=== PATIENT | female | born 1935 | race Caucasian/White ===

== ENCOUNTER 2020-02-20 10:08 | Emergency (ER) | payer MEDICARE, OTHER ==
[~2020-02-20] VITALS: Ht 157.5 cm; Wt 59.0 kg
[2020-02-20 10:58] LABS: BASOPHILS ABSOLUTE AUTO 0.05 K/mm3 (0.00-0.23); BASOPHILS PERCENT AUTO 1 % (0-2); EOSINOPHILS PERCENT AUTO 3 % (0-6); Hematocrit 40.7 % (33.0-51.0); Hemoglobin 13.9 g/dL (11.5-16.0); IMMATURE GRAN ABSOLUTE AUTO 0.03 K/mm3 (0.00-0.10); IMMATURE GRAN PERCENT AUTO 0 % (0-1); LYMPHOCYTES ABSOLUTE AUTO 1.62 K/mm3 (0.84-5.20); LYMPHOCYTES PERCENT AUTO 19 % (21-46); MONOCYTES ABSOLUTE AUTO 0.56 K/mm3 (0.16-1.47); MONOCYTES PERCENT AUTO 6 % (4-13); Mean Corpuscular HGB 31.2 pg (26.0-34.0); Mean Corpuscular HGB Conc 34.2 g/dL (31.5-36.5); Mean Corpuscular Volume 92 fL (80-100); Mean Platelet Volume 10.2 fL (9.1-12.4); NEUTROPHILS ABSOLUTE AUTO 6.16 K/mm3 (1.96-9.15); NEUTROPHILS PERCENT AUTO 71 % (41-73); Platelet Count 273 K/mm3 (150-400); RDW Coefficient Variation 12.3 % (11.7-14.2); RDW Standard Deviation 40.9 fL (35.1-46.3); Red Blood Cell Count 4.45 M/mm3 (3.80-5.20); White Blood Cell Count 8.72 K/mm3 (4.00-11.30)
[2020-02-20 11:27] LABS: Alanine Aminotransfer (ALT/SGP 26 U/L (12-78); Albumin, Blood 3.9 g/dL (3.4-5.0); Alk Phos 119 U/L (50-136); Anion Gap 6 mmol/L (6-16); Aspartate Aminotrans (AST/SGOT 27 U/L (12-37); Bilirubin, Total 0.3 mg/dL (0.1-1.0); Blood Urea Nitrogen 13 mg/dL (8-24); Bun/Creatinine Ratio 21.8 (12.0-20.0); CO2, Blood 25 mmol/L (21-32); Calcium, Blood 8.9 mg/dL (8.5-10.1); Chloride, Blood 97 mmol/L (98-108); Globulin, Blood 3.9 g/dL (2.2-4.0); Glomerular Filtration Rate >60 (60-); Glucose, Blood 134 mg/dL (70-99); Potassium, Blood 4.3 mmol/L (3.5-5.5); Sodium, Blood 128 mmol/L (136-145); Total Protein, Blood 7.8 g/dL (6.4-8.2); Troponin I <0.015 ng/mL (0.000-0.040)
[2020-02-20] MEDS ORDERED: Atrovent Inha12.9 GM INH (12:03)
[2020-02-20] MEDS ORDERED: PRED20 PO (12:03)
== END 2020-02-20 12:15 | disposition home or self-care (01) ==
LOC: ER 10:08
PROVIDERS: Physician Assistant
DX: J44.1 Chronic obstructive pulmonary disease with (acute) exacerbation (principal); Z88.0 Allergy status to penicillin; Z88.8 Allergy status to other drugs, medicaments and biological substances; Z88.1 Allergy status to other antibiotic agents; Z79.52 Long term (current) use of systemic steroids; Z79.899 Other long term (current) drug therapy
CPT/HCPCS: 36415; 71046; 80053; 83880; 84484; 85025; 93005; 93010; 94640; 96374-59; 99285-25; J2930

== ENCOUNTER 2022-02-14 19:16 | Inpatient (IN) | payer MEDICARE ==
[~2022-02-14] VITALS: Ht 157.5 cm; Wt 57.0 kg
[~2022-02-14 19:16] MED LIST: Atrovent Inha12.9 GM INH; PRED20 PO
[2022-02-14 20:26] LABS: Alanine Aminotransfer (ALT/SGP 16 U/L (12-78); Albumin, Blood 3.3 g/dL (3.4-5.0); Albumin/Globulin Ratio 0.8 (0.8-1.8); Alk Phos 106 U/L (50-136); Anion Gap 8 mmol/L (6-16); Aspartate Aminotrans (AST/SGOT 21 U/L (12-37); Bilirubin, Total 0.5 mg/dL (0.1-1.0); Blood Urea Nitrogen 6 mg/dL (8-24); Bun/Creatinine Ratio 12.3 (12.0-20.0); CO2, Blood 27 mmol/L (21-32); Calcium, Blood 8.5 mg/dL (8.5-10.1); Chloride, Blood 86 mmol/L (98-108); Creatinine, Blood 0.49 mg/dL (0.40-1.00); Globulin, Blood 4.1 g/dL (2.2-4.0); Glomerular Filtration Rate >60 (60-); Glucose, Blood 167 mg/dL (70-99); Potassium, Blood 3.8 mmol/L (3.5-5.5); Sodium, Blood 121 mmol/L (136-145); Total Protein, Blood 7.4 g/dL (6.4-8.2)
[2022-02-14 20:41] LABS: BASOPHILS ABSOLUTE AUTO 0.02 K/mm3 (0.00-0.23); BASOPHILS PERCENT AUTO 0 % (0-2); EOSINOPHILS PERCENT AUTO 0 % (0-6); Hematocrit 38.5 % (33.0-51.0); Hemoglobin 13.4 g/dL (11.5-16.0); IMMATURE GRAN ABSOLUTE AUTO 0.08 K/mm3 (0.00-0.10); IMMATURE GRAN PERCENT AUTO 1 % (0-1); LYMPHOCYTES ABSOLUTE AUTO 1.14 K/mm3 (0.84-5.20); LYMPHOCYTES PERCENT AUTO 10 % (21-46); MONOCYTES ABSOLUTE AUTO 0.87 K/mm3 (0.16-1.47); MONOCYTES PERCENT AUTO 8 % (4-13); Mean Corpuscular HGB 31.2 pg (26.0-34.0); Mean Corpuscular HGB Conc 34.8 g/dL (31.5-36.5); Mean Corpuscular Volume 90 fL (80-100); Mean Platelet Volume 10.6 fL (9.1-12.4); NEUTROPHILS ABSOLUTE AUTO 9.48 K/mm3 (1.96-9.15); NEUTROPHILS PERCENT AUTO 82 % (41-73); NRBC ABSOLUTE 0.02 K/mm3 (0.00-0.02); NRBC Auto 0.2 /100 WBC (0.0-0.2); Platelet Count 234 K/mm3 (150-400); RDW Coefficient Variation 12.2 % (11.7-14.2); Red Blood Cell Count 4.29 M/mm3 (3.80-5.20); White Blood Cell Count 11.59 K/mm3 (4.00-11.30)
[2022-02-14 22:05] LABS: Influenza A, PCR NEGATIVE (NEGATIVE); Influenza B, PCR NEGATIVE (NEGATIVE); Resp Syncytial Virus, PCR NEGATIVE (NEGATIVE); SARS-Cov-2 (COVID-19) PCR, MMC NEGATIVE (NEGATIVE)
[2022-02-14] MEDS ORDERED: ATROVENT HFA12.9 GM INH (23:56)
[2022-02-14] MEDS ORDERED: DORZOLAMIDE 2%10 M3 BOTHEYES (23:57)
[2022-02-14] MEDS ORDERED: TRAVOPROST2.5 ML BOTHEYES (23:57)
[2022-02-15 05:28] LABS: BASOPHILS ABSOLUTE AUTO 0.01 K/mm3 (0.00-0.23); BASOPHILS PERCENT AUTO 0 % (0-2); EOSINOPHILS PERCENT AUTO 0 % (0-6); Hematocrit 32.8 % (33.0-51.0); Hemoglobin 11.9 g/dL (11.5-16.0); IMMATURE GRAN ABSOLUTE AUTO 0.03 K/mm3 (0.00-0.10); IMMATURE GRAN PERCENT AUTO 0 % (0-1); LYMPHOCYTES ABSOLUTE AUTO 0.37 K/mm3 (0.84-5.20); LYMPHOCYTES PERCENT AUTO 4 % (21-46); MONOCYTES ABSOLUTE AUTO 0.12 K/mm3 (0.16-1.47); MONOCYTES PERCENT AUTO 1 % (4-13); Mean Corpuscular HGB Conc 36.3 g/dL (31.5-36.5); Mean Corpuscular Volume 94 fL (80-100); Mean Platelet Volume 10.7 fL (9.1-12.4); NEUTROPHILS ABSOLUTE AUTO 9.39 K/mm3 (1.96-9.15); NEUTROPHILS PERCENT AUTO 95 % (41-73); Platelet Count 232 K/mm3 (150-400); RDW Standard Deviation 40.2 fL (35.1-46.3); White Blood Cell Count 9.92 K/mm3 (4.00-11.30)
[2022-02-15 06:04] LABS: Alanine Aminotransfer (ALT/SGP 18 U/L (12-78); Albumin, Blood 2.9 g/dL (3.4-5.0); Albumin/Globulin Ratio 0.8 (0.8-1.8); Alk Phos 94 U/L (50-136); Anion Gap 8 mmol/L (6-16); Aspartate Aminotrans (AST/SGOT 20 U/L (12-37); Bilirubin, Total 0.5 mg/dL (0.1-1.0); Blood Urea Nitrogen 8 mg/dL (8-24); Bun/Creatinine Ratio 14.1 (12.0-20.0); CO2, Blood 27 mmol/L (21-32); Calcium, Blood 8.4 mg/dL (8.5-10.1); Chloride, Blood 85 mmol/L (98-108); Creatinine, Blood 0.57 mg/dL (0.40-1.00); Globulin, Blood 3.8 g/dL (2.2-4.0); Glomerular Filtration Rate >60 (60-); Glucose, Blood 177 mg/dL (70-99); Potassium, Blood 3.8 mmol/L (3.5-5.5); Sodium, Blood 120 mmol/L (136-145); Total Protein, Blood 6.7 g/dL (6.4-8.2)
--- NOTE | 2022-02-15 07:56 | NUR ---
Rn summary: Patient was admitted early this am from the ED. Patient is alert and oriented. She has been up independantly to the bathroom, needs some help with her tele box. Pt is on telemetry, STach rate 107. Breath sounds are expiratory wheeze throughout. Pt is on RA saturating 94%, pt has a dry non productive cough. Pt has been unable to rest, reports some nausia this am. Pt is hopeful to go home today. Glasses at bedside. Report to oncoming shift.
--- NOTE | 2022-02-15 10:23 | NUR ---
INCREASED NORMAL SALINE RATE TO 100 ML/HR PER ORDER.
--- NOTE | 2022-02-15 17:43 | NUR ---
PT C/O SYMPTOMS OF CONSTIPATION TODAY WITH RLQ DULL ACHE PAIN. PT REPORTED NO BM X 2 DAYS, BS ACTIVE. GAVE PRUNE JUICE AT 2:30 PM WITH NO RESULTS. NOTIFIED MD OF PT C/O CONSTIPATION. ALSO NOTIFIED OF CRITICAL NA VALUE OF 117 [address] BS OF 202[address] ARGUETA STATED SHE WOULD PLACE ORDERS.
--- NOTE | 2022-02-15 19:12 | NUR ---
SHIFT SUMMARY: PT ADMITTED EARLY THIS MORNING FOR A COPD EXACERBATION. PT IS ALERT AND ORIENTED. SHE WAS ABLE TO AMBULATE INDEPENDENTLY TO THE BATHROOM THROUGHOUT THE DAY, WITH SOME ASSISTANCE NAVIGATING THE IV POLE. NEAR THE END OF MY SHIFT, THE PATIENT BEGAN HAVING INCREASED SOB, ESPECIALLY WITH AMBULATION. SHE WAS ON ROOM AIR, BUT WHEN SHE BEGAN HAVING INCREASED SOB, WE PLACED THE PT ON O2 2L NC, WHICH BROUGHT HER O2 UP TO 98%. WE THEN PLACED THE NC NEXT TO THE PT AND EDUCATED HER TO PUT THE O2 ON WHEN SHE GETS UP TO GO TO THE BATHROOM. BSC IS SET UP NEXT TO HER BED. BUMEX WAS ALSO ADMINISTERED TO THE PT, WELL MULTIPLE NEB TREATMENTS THROUGHOUT THE DAY. THE PT IS ON TELEMETRY. WHEN STANDING TO USE THE BATHROOM, HER RATE INCREASED TO 125. SHE HAS EXPIRATORY WHEEZES THROUGHOUT. SHE HAS A DRY NONPRODUCTIVE COUGH. GUAIFENESIN WAS ADMINISTERED. SHE DID REPORT SOME NAUSEA EARLIER TODAY, WHICH WAS TREATED WITH ZOFRAN.
[2022-02-15 20:20] LABS: PCO2 Arterial > 105 mmHg (35-45); PO2 Arterial 86.5 mmHg (80-100)
--- NOTE | 2022-02-15 20:41 | NUR ---
RAPID RESPONSE AND TRANSFER WHILE RECEIVING REPORT THIS RN WAS APPROACHED BY RT CONCERNED ABOUT PT'S RESPIRATORY STATUS. UPON ENTERING ROOM PT WAS SITTING UP IN BED WORKING VERY HARD TO BREATH. COULD AUDIBLY HEAR LUNG COARSNESS AND WHEEZING. PT WAS ON 2 L VIA NC, O2 SATS WERE IN THE MID 90'S AT THIS TIME BUT RESPIRATIONS WERE IN THE 30'S AND HEART RATE WAS IN THE 140'S-150'S. 2100 DOSE SOLUMEDROL GIVEN. RT GIVING NEB TX. TELEMETRY CONFIRMED RATE AND STATED THAT PT WAS SINUS BUT WAS CONCERNED THAT THERE WAS ST CHANGES AND RECOMMENDED AN EKG. HUMBERTO FREELANCE TRANSLATOR CALLED TO ROOM FOR EKG. PT ATTEMPTING TO PULL MASK OFF, NODDING HEAD YES WHEN SPOKEN TO. BLOOD PRESSURE TAKEN READING 201/120. PT BECOMING LESS RESPONSIVE. RAPID RESPONSE CALLED. RAPID TEAM ENTERED ROOM. PT ON BIPAP WITH 14 L BLEEDIN O2 SATS 90-91%. DR. JAUREGUI AT BEDSIDE. ORDERS FOR ABG, 2.5 MG IV MORPHINE, MAG SULFATE, CHEST XRAY, 50 MEQ BICARB PUSH, AND TROPONIN LAB. ALL COMPLETED PRIOR TO TRANSFER. PT TRANSFERED VIA BED WITH FREELANCE TRANSLATOR HUMBERTO, RT, AND DISTRIBUTION SALES REPRESENTATIVE. RAFA (DAUGHTER) [phone] 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 REPORT GIVEN TO PIERCER OPERATOR.
--- NOTE | 2022-02-15 21:57 | NUR ---
PT TRANSFER TO PCU PT ARRIVED TO PCU FROM MEDICAL FLOOR AT APPROX 2019. PT WAS SLID BY 4 STAFF FROM MEDICAL FLOOR BED TO PCU BED. PT MINIMALLY RESPONSIVE. ABLE TO SQUEEZE FINGERS WHEN PROMPTED, BUT DOES NOT TRACK WITH EYES, UNABLE TO ANSWER QUESTIONS OR FOLLOW LARGER COMMANDS REGARDING MOVEMENT. SP02>92%, RR 25. TELEMETRY SHOWS SINUS TACH W/ ST ELEVATION, EKG DONE UPON ARRIVAL PER ORDERS. HR INITALLY 140'S UPON TRANSFER, NOW 90'S. MD JAUREGUI IN ROOM TO ASSESS PT. MD JAUREGUI WITH ORDERS FOR SODIUM BICARB 50 MEQ X1. MAG INFUSING PER EMAR. ARRIVED TO ROOM, NOW WITH PT. PT'S BP BEGAN DECREASING. 163/94 TO 72/41. CALL PLACED TO MD JAUREGUI. MD JAUREGUI WITH ORDERS FOR 500 ML NS BOLUS. BOLUS CURRENTLY INFUSING. LAB CALLED WITH CRITICAL TROPONIN, 131. DISCUSSED WITH CHARGE NURSE.
--- NOTE | 2022-02-15 22:25 | NUR ---
PT UPDATE PT BP RESPONDING TO NS BOLUS. CALL PLACED TO MD JAUREGUI ABOUT BP AND CRITICAL TROP. MD JAUREGUI W/ ORDERS FOR REPEAT TROP IN 1 HR AND NS AT 75 MLS/HR, SEE EMAR.
[2022-02-16 03:38] LABS: PCO2 Venous 41.5 mmHg (38-42); PO2 Venous 50.9 mmHg (38-42); pH Blood Venous 7.46 (7.34-7.37)
[2022-02-16 03:39] LABS: Base Excess Venous 5.8 mmol/L
[2022-02-16 04:43] LABS: BASOPHILS ABSOLUTE AUTO 0.02 K/mm3 (0.00-0.23); BASOPHILS PERCENT AUTO 0 % (0-2); EOSINOPHILS PERCENT AUTO 0 % (0-6); Hematocrit 32.8 % (33.0-51.0); Hemoglobin 11.7 g/dL (11.5-16.0); IMMATURE GRAN ABSOLUTE AUTO 0.07 K/mm3 (0.00-0.10); IMMATURE GRAN PERCENT AUTO 1 % (0-1); LYMPHOCYTES ABSOLUTE AUTO 0.89 K/mm3 (0.84-5.20); LYMPHOCYTES PERCENT AUTO 6 % (21-46); MONOCYTES ABSOLUTE AUTO 0.61 K/mm3 (0.16-1.47); MONOCYTES PERCENT AUTO 4 % (4-13); Mean Corpuscular HGB 31.3 pg (26.0-34.0); Mean Corpuscular HGB Conc 35.7 g/dL (31.5-36.5); Mean Platelet Volume 10.6 fL (9.1-12.4); NEUTROPHILS ABSOLUTE AUTO 12.97 K/mm3 (1.96-9.15); NEUTROPHILS PERCENT AUTO 89 % (41-73); Platelet Count 251 K/mm3 (150-400); RDW Coefficient Variation 11.8 % (11.7-14.2); RDW Standard Deviation 37.8 fL (35.1-46.3); Red Blood Cell Count 3.74 M/mm3 (3.80-5.20); White Blood Cell Count 14.56 K/mm3 (4.00-11.30)
[2022-02-16 04:46] LABS: Anion Gap 9 mmol/L (6-16); Blood Urea Nitrogen 13 mg/dL (8-24); Bun/Creatinine Ratio 16.2 (12.0-20.0); CO2, Blood 29 mmol/L (21-32); Calcium, Blood 8.3 mg/dL (8.5-10.1); Chloride, Blood 83 mmol/L (98-108); Glomerular Filtration Rate >60 (60-); Glucose, Blood 176 mg/dL (70-99); Potassium, Blood 3.6 mmol/L (3.5-5.5); Sodium, Blood 121 mmol/L (136-145)
[2022-02-16 04:47] LABS: Mean Corpuscular Volume 88 fL (80-100)
--- NOTE | 2022-02-16 05:54 | NUR ---
SHIFT SUMMARY TOWARDS END OF SHIFT, PT BEGAN TO BECOME MORE ALERT, ORIENTED. PT ABLE TO STATE WHERE SHE IS, , YEAR, ETC. SP02>92% ON BIPAP , IMPROVED VBG RESULTS NOTED IN DEC. TELEMETRY CONTINUES TO SHOW SINUS TACH, HR AVG 100'S CURRENTLY. SOFT BP. PT USED BEDPAN THIS SHIFT TO VOID AFTER MULTIPLE PROMPTS AND A BLADDER SCAN SHOWING URINE IN BLADDER. NO BM THIS SHIFT. NS INFUSED PER EMAR. NEW IV PLACED IN L AC FOR DUAL ACCESS. PT STAYED NIGHT IN ROOM. CALL LIGHT IN REACH.
[2022-02-16 12:00] LABS: International Normalized Ratio 1.09; Prothrombin Time Results 11.4 Sec (9.7-11.5)
--- NOTE | 2022-02-16 15:07 | NUR ---
SHIFT SUMMARY Pt is a/o x 4 with no c/o pain. This afternoon she did report some nausea for which she was medicated. This morning she had an elevtaed troponin which was called in to Dr Moore who gave orders for a cardio consult, Aspirin and a heparin drip dosed by pharmacy. Dr Nelson was notified for the cardio consult and the heparin drip was started. Her has been at the bedside for part of the day and has been updated. She remains on 3 LPM via NC to maintain sats above 90%. She is resting in bed now. She has her call light and report was given to the receiving nurse.
--- NOTE | 2022-02-16 15:57 | NUR ---
PT WITH INCREASE IN SOB, PT ANXIOUS TACHYCARDIC, TACHPENIC, SKIN DRY. FLUIDS STOPPED AT THIS TIME WHEEZES NOTED T/O, COARSE CRACKLES NOTED. PT RECIEVED MORPHINE FOR AIR HUNGER WITHOUT IMRPOVEMENT. DR ARGUETA TO ROOM, RT TO ROOM, V/O TO TRANSFER TO ICU AT THIS TIME. HR 135, SPO2 92% WITH CPAP IN PLACE, RR 40.
--- NOTE | 2022-02-16 16:14 | NUR ---
PT CONFUSED AGITATED PULLING AT MASK CONSTANTLY, SHOUTING OUT. ATIVAN 0.5MG IVP ADMINISTERED AT THIS TIME. BREATHING TX IN PROGRESS, NO CHANGE IN LUNG SOUNDS. SOLUMEDROL 125MG ADMINISTERED IVP. FAMILY HAS BEEN UPDATED BY DR ARGUETA, THEY CONTINUE WITH WISHES FOR DNR STATUS WITHOUT INTUBATION. HEPARIN D/C PER DR ARGUETA, NS IS STOPPED.
--- NOTE | 2022-02-16 18:33 | NUR ---
PT RESTING WELL, MEDCIATIONS PER EMAR. FMAILY AT [facility], ADDITIONAL FAMILY WILL ARRIVE TONIGHT. PT REMAINS ON CPAP. VSS. WILL ASSESS FOR COTNINUED MEDICATION NEEDS
--- NOTE | 2022-02-16 20:09 | NUR ---
called to bedside pt having extreme aggiation and dyspnea. Pt DNR unable to have cardiac intervention due to comorbid conditions. Decision made for cofort care. Pt kept on bipap for now until we can mdecicate her well. prn lasix ordered for comfort if pulmonary edema present. Family on their way from out of town. comfort pillow and quilt placed. Will continue to monitor.
--- NOTE | 2022-02-17 01:15 | NUR ---
PATIENT STATUS PATIENT RESTING COMFORTABLY WITH AT BEDSIDE. PATIENT BECOMES EASILY AGGITATED AND SUSPICIOUS OF STAFF WHEN WOKEN UP. BEING MEDICATED PER EMAR. CLINICAL JUDGMENT USED TO ALLOW PATIENT TO REST WITHOUT FREQUENT DISTURBANCES. CPAP IN PLACE PER FAMILY PREFERENCE WITH NO S/S OF INCREASED WOB.
--- NOTE | 2022-02-17 01:19 | NUR ---
PATIENT UPDATE PATIENT GIVEN WATER AND WAS TAKEN OFF OF CPAP AND PUT ONTO A NASAL CANULA AT 4L; PATIENT EXPRESSED COMFORT WITH BREATHING AND CONTINUED TO SAT >95. PATIENT REQUESTED BEDPAN AND VOIDED EASILY. PATIENT IS ALERT AND ORIENTED TO SELF, PLACE, AND FAMILY. PATIENT CONFUSED WITH CARE AND REASONING OF HOSPITALIZATION. PATIENT WAS PREVIOUS SUPICIOUS OF STAFF DURING EARLIER CARE DURING THE SHIFT, BUT WAS CALM AND COOPERATIVE WITH REPOSITIONING AND TOILETING. CALL LIGHT IN REACH AND BED IN LOWEST POSITION. FAMILY AT BEDSIDE.
--- NOTE | 2022-02-17 03:05 | NUR ---
PATIENT UPDATE PATIENT SLEEPING COMFORTABLY WITH DAUGHTER AND GRANDSON AT BEDSIDE. NO VERBAL OR PHYSICAL CUES OF PAIN, ANXIETY, SOB, OR DISCOMFORT. CALL LIGHT IN REACH, BED IN LOWEST POSITION. WILL CONTINUE TO MONITOR
--- NOTE | 2022-02-17 04:48 | NUR ---
PATIENT UPDATE PATIENT CALLED FOR ASSISTANCE WITH BEDPAN; PERICARE DONE. PATIENT IS VISITING WITH DAUGHTER AND GRANDSON. PATIENT REPOSITIONED IN BED AND VERBALIZED COMFORT. CALM AND COOPERATIVE WITH CARE. NO S/S OF PAIN, ANXIETY, SOB, OR DISCOMFORT. PATIENT GIVEN FRESH CUP OF WATER. CALL BUTTON IN REACH WITH BED IN LOWEST POSITION. WILL CONTINUE TO MONITOR
--- NOTE | 2022-02-17 06:03 | NUR ---
SHIFT SUMMARY PATIENT IS A$O X4 WITH SOME CONFUSION OF THE EVENTS OF THE PREVIOUS DAY WHEN SHE WAS NONVERBAL. PATIENT IS SATTING AT 98% WITH 4L ON NASAL CANULA. ABLE TO CALL FOR HELP WITH BEDPAN FOR TOILETING. PATIENTS NEEDS HELP BEING PULLED UP IN THE BED BUT IS ABLE TO REPOSTION SELF WELL. NO S/S OF PAIN, SOB, ANXIETY, OR DISCOMFORT. DAUGHTER AND GRANDSON IN ROOM HAVING PLEASANT CONVERSATIONS WITH EACHOTHER. PATIENT GIVEN SNACK AND WATER PER REQUEST. CALL BUTTON IN REACH WITH BED IN LOWEST POSITION. WILL CONTINUE TO MONITOR.
[2022-02-17 10:58] LABS: Anion Gap 7 mmol/L (6-16); Blood Urea Nitrogen 17 mg/dL (8-24); Bun/Creatinine Ratio 22.5 (12.0-20.0); CO2, Blood 30 mmol/L (21-32); Calcium, Blood 8.3 mg/dL (8.5-10.1); Chloride, Blood 85 mmol/L (98-108); Creatinine, Blood 0.76 mg/dL (0.40-1.00); Glomerular Filtration Rate >60 (60-); Glucose, Blood 122 mg/dL (70-99); Potassium, Blood 4.4 mmol/L (3.5-5.5); Sodium, Blood 122 mmol/L (136-145)
--- NOTE | 2022-02-17 14:56 | NUR ---
UPDATE PT A&Ox4 AND ON COMFORT CARE UPON CARE ASSUMPTION. DR ARGUETA CAME TO BEDSIDE FOR FAMILY DISCUSSION ABOUT PT CARE PLAN. FAMILY AND PT MADE DECISION TO RESUME FULL TREATMENT AND CANCEL COMFORT CARE AT THIS TIME. THIS AFTERNOON PT BECAME ANXIOUS AND FIXATED ON THINGS. MONITOR SHOWED SINUS TACH HR 140'S. PT REQUIRED COACHING ON TAKING DEEP BREATHS. SPO2>92% WITH OXYGEN TITRATED UP TO 3L. PT FIXATED ON NEED TO VOID DESPITE MONTANO CATH PATENT AND DRAINING, CLEAR YELLOW URINE. PT REQUIRING FREQUENT REMINDING THAT MONTANO CATH IS IN PLACE. PT HR TRENDING BACK DOWN TO SINUS TACH 100-110'S. PT WITH COMMENTS OF PATIENT "LOOSING IT" AND "GOING IN AND OUT".
[2022-02-17 15:03] LABS: Source, Urine Foley catheter
[2022-02-17 16:07] LABS: Appearance, Urine Clear (Clear); Bilirubin, Urine Neg (Neg); Blood, Urine Neg (Neg); Glucose Qualitative, Urine Neg (Neg); Ketones, Urine Neg (Neg); Leukocyte Esterase, Urine Neg (Neg); Nitrite, Urine Neg (Neg); Protein, Urine Neg (Neg); Specific Gravity, Urine 1.005 (1.003-1.022); Urobilinogen, Urine NORM (Normal); pH, Urine 6.5 (5.0-8.0)
[2022-02-17 16:24] LABS: Color, Urine No Color (P-Yellow)
--- NOTE | 2022-02-17 17:28 | NUR ---
SHIFT SUMMARY PT A&Ox4 WITH A FEW MOMENTS OF CONFUSION AND FIXATION REQUIRING FREQUENT REDIRECTING OTHERWISE PT APPROPRIATE. SPO2>90% ON 3L HUMIDIFIED NC. SINUS TACH 110'S. MONTANO CATH IN PLACE AND DRAINING APPROPIATELY. FAMILY AT BEDSIDE REMINISCING WITH PT THROUGHOUT THE DAY. WILL CONTINUE TO MONITOR AND PROVIDE CARE UNTIL REPORT TO NOC.
--- NOTE | 2022-02-17 19:01 | NUR ---
review of pt with hospitalist. Showing some improvement will try to return to limited treatment and see how she responds.
--- NOTE | 2022-02-17 19:16 | NUR ---
THIS RN AGREES W/ STUDENT NURSE DOCUMENTATION THIS SHIFT.
--- NOTE | 2022-02-17 19:40 | NUR ---
ASSUMPTION OF CARE RYAN MUELLER AND RAOUL PORTER ASSUMED CARE FOR PATIENT AT 1900. REPORT TAKEN FROM SANIYA PORTER AND MIKKI MUELLER
[2022-02-18 04:17] LABS: Alanine Aminotransfer (ALT/SGP 34 U/L (12-78); Albumin, Blood 2.8 g/dL (3.4-5.0); Albumin/Globulin Ratio 0.8 (0.8-1.8); Alk Phos 91 U/L (50-136); Anion Gap 6 mmol/L (6-16); Aspartate Aminotrans (AST/SGOT 47 U/L (12-37); Bilirubin, Total 0.3 mg/dL (0.1-1.0); Blood Urea Nitrogen 21 mg/dL (8-24); CO2, Blood 33 mmol/L (21-32); Calcium, Blood 8.8 mg/dL (8.5-10.1); Chloride, Blood 93 mmol/L (98-108); Creatinine, Blood 0.88 mg/dL (0.40-1.00); Globulin, Blood 3.3 g/dL (2.2-4.0); Glomerular Filtration Rate >60 (60-); Glucose, Blood 160 mg/dL (70-99); Potassium, Blood 4.4 mmol/L (3.5-5.5); Sodium, Blood 132 mmol/L (136-145); Total Protein, Blood 6.1 g/dL (6.4-8.2)
--- NOTE | 2022-02-18 04:19 | NUR ---
SHIFT SUMMARY PATIENT IS A&O X4 WITH PERIODS OF CONFUSION. CALM AND COOPERATIVE WITH CARE. NO COMPLAINTS OF PAIN. ON 3L OF O2 VIA NC, SATTING AT 95%. DYSPNEIC WITH EXERTION. SR/ST ON TELE WITH HR 90-110S, SBP 100-120. AFEBRILE. MONTANO CATHETER IS DRAINING LIGHT YELLOW URINE. PATIENT IS USING FLUTTER VALVE FREQUENTLY DURING SHIFT WHEN AWAKE AND HAS STARTED TO COUGH UP THIN CLEAR-ARREAGA SPUTUM. PATIENT UNDERSTANDS HOW TO USE CALL BUTTON FOR ASSISTANCE. DAUGHTER AND GRANDSON SLEEPING AT BEDSIDE. BED IN LOWEST POSITION AND CALL BUTTON WITHIN REACH. WILL CONTINUE TO MONITOR.
--- NOTE | 2022-02-18 17:56 | NUR ---
SHIFT SUMMARY A&Ox4, VSS, SPO2>92% 4L NC, SINUS TACH 100-120'S. PT DID NOT HAVE ANY MOMENTS OF SOB. PT ABLE TO GET UP TO CHAIR WITH ONE ASSIST, GB, AND FWW. DID NOT DESAT WITH ACTIVITY. HAS BEEN UP IN CHAIR FOR MAJORITY OF THE DAY. NO MOMENTS OF CONFUSION TODAY. PT REMAINED VERY CLEAR AND SPENT MUCH OF THE DAY REMINISCINGWITH FAMILY MEMBERS. FAMILY AT BEDSIDE THROUGHOUT THE DAY. MONTANO PATENT AND DRAINING APPROPRIATELY. WILL CONTINUE TO MONITOR UNTIL REPORT TO NOC RN.
--- NOTE | 2022-02-18 18:38 | NUR ---
THIS RN AGREES W/ STUDENT NURSE DOCUMENTATION THIS SHIFT.
--- NOTE | 2022-02-19 05:53 | NUR ---
SHIFT SUMMARY ASSUMED CARE OF PT AT 1900. PT IS A/OX3, FORGETFUL OF DATE. HEART SOUNDS REGULAR. TELE SHOWS SINUS WHILE SLEEPING BUT SINUS TACH WHILE AWAKE AND MOVING. LUNG SOUNDS COURSE WITH WHEEZES, PT REMAINED ON 4L NC. PT HAD NO NEW COMPLAINTS, PT SLKEPT T/O THE NIGHT. PT AWAOKE THIS AM FRIGHTENED BECAUSE SHE SLEPT SO LONG AND THE ROOM WAS QUIET. PT WAS BLADDER TRAINED T/O THE NIGHT. CHARMAINE REMOVED THIS AM AT 0600.
--- NOTE | 2022-02-19 17:21 | NUR ---
TRANSFER: PT ARRIVED TO ROOM 209 FROM PCU. PT ALERT AND ORIENTED, FAMILY AT BEDSIDE. PT REMAINS ON 2L O2. PT MIN ASSIST TO CHAIR AND TO BATHROOM. CALL LIGHT PLACED IN REACH. WILL CONT TO MONITOR AND TREAT PER RX.
--- NOTE | 2022-02-19 17:23 | NUR ---
SHIFT SUMMARY/TRANSER TO SURGICAL PT A&Ox4, VSS, SR-ST 90-120'S. TITRATED OXYGEN FROM 4L TO 2L VIA NC SPO2>93%. FAMILY AT BEDISDE THROUGHOUT THE DAY. PT CONTINENT OF URINE. AMBULATING TO THE BATHROOM WITH ONE PERSON ASIJERICAT AND FWW. REPORT GIVEN TO SURGICAL FLOOR RN AT APPROXIMATELY 1710. PT TRANSFERED TO ROOM 209 VIA WHEELCHAIR WITH BELONGINGS AND PRESENT AT APPROXIMATELY 1720.
--- NOTE | 2022-02-19 18:12 | NUR ---
THIS RN AGREES W/ STUDENT NURSE DOCUMENTATION THIS SHIFT.
--- NOTE | 2022-02-20 04:50 | NUR ---
SHIFT SUMMARY PT AOX3-4. PT WAS A LITTLE CONFUSED WHEN SHE WOKE UP THIS MORNING BUT EASILY REORIENTED. NO ACUTE CHANGES. PT DENIES PAIN. VSS BUT HYPERTENSIVE THIS MORNING 164/75 MMHG. PT DENIES CHEST PAIN AND DIZZINESS. CBG AT HS WAS 151. PT ON 2L N/C, SATS ABOVE 90%. PT USE BATHROOM, AMBULATES WITH FWW AND SBA. USEA CALL LIGHT APPROPRIATELY. TOLERATING PO INTAKE/REG DIET. PT ALSO HAS PRODCUCTIVE COUGH INTERMITTENTLY AND DIM LUNG SOUNDS, ENC USE FLUTTER VALVE. CALL LIGHT WITHIN REACH. WILL NOTIFY THE ONCOMING NURSE FOR REPORT.
[2022-02-20] MEDS ORDERED: ATOR20 PO (13:53)
[2022-02-20] MEDS ORDERED: ASPI81CH PO (13:53)
[2022-02-20] MEDS ORDERED: Nicoderm Cq1 EAC1 TOP (13:54)
[2022-02-20] MEDS ORDERED: FURO20 PO (13:54)
[2022-02-20] MEDS ORDERED: DOCU100 PO (13:54)
[2022-02-20] MEDS ORDERED: BUSP5 PO (13:54)
[2022-02-20] MEDS ORDERED: MIRALAX17 GM PO (13:58)
[2022-02-20] MEDS ORDERED: PRED20 PO (13:59)
[2022-02-20] MEDS ORDERED: AIRDUO DIGIHAL1 EAC2 INH (14:01)
[2022-02-20] MEDS ORDERED: POTA8 PO (14:04)
--- NOTE | 2022-02-20 18:00 | NUR ---
DISCHARGE PT DISCHARGED HOME FROM UNIT AT APROX 1424. PT GIVEN WRITTEN AND VERBAL DC INSTUCTIONS AND VERBALIZED UNDERSTANDING. IV REMOVED. WC TO CAR. NEW RX'S FAXED TO [facility].
== END 2022-02-20 14:22 | disposition home or self-care (01) | DRG 189 ==
LOC: ER 19:16 → MEDS 23:35 → ER 02-15 01:46 → MEDS 02-15 02:07 → PCU 02-15 20:37 → SURS 02-19 17:19
PROVIDERS: Internal Medicine; Student in an Organized Health Care Education/Training Program; ADMIT Internal Medicine
PROC: 5A09457 Assistance with Respiratory Ventilation, 24-96 Consecutive Hours, Continuous Positive Airway Pressure (ICD-10-PCS; principal; 2022-02-15)
DX: J96.01 Acute respiratory failure with hypoxia (principal); I50.31 Acute diastolic (congestive) heart failure; I21.4 Non-ST elevation (NSTEMI) myocardial infarction; E87.1 Hypo-osmolality and hyponatremia; J44.1 Chronic obstructive pulmonary disease with (acute) exacerbation; E87.0 Hyperosmolality and hypernatremia; J44.0 Chronic obstructive pulmonary disease with (acute) lower respiratory infection; Z66 Do not resuscitate; J20.9 Acute bronchitis, unspecified; F41.1 Generalized anxiety disorder; R53.81 Other malaise; R77.8 Other specified abnormalities of plasma proteins; Z20.822 Contact with and (suspected) exposure to COVID-19; F17.210 Nicotine dependence, cigarettes, uncomplicated; R00.0 Tachycardia, unspecified; F10.10 Alcohol abuse, uncomplicated; H40.9 Unspecified glaucoma; H35.30 Unspecified macular degeneration; Z88.0 Allergy status to penicillin; Z88.1 Allergy status to other antibiotic agents; Z88.8 Allergy status to other drugs, medicaments and biological substances; Z79.51 Long term (current) use of inhaled steroids; Z79.899 Other long term (current) drug therapy; F41.9 Anxiety disorder, unspecified
CPT/HCPCS: 0241U; 36415; 36600; 71045; 71046; 80048; 80053; 81003; 82803; 82947; 83880; 84295; 84484; 85025; 85610; 85730; 87070; 87205; 93005; 93010; 93306; 94640; 94644; 94660; 94664; 94760; 94762; 96365; 96366; 96372; 96375; 97110; 97116; 97162; 99285-25; A9270; J1644; J1650; J1885; J1956; J2060; J2270; J2405; J2550; J2930; J3475; J7030; J7040; J7512

== ENCOUNTER 2022-08-16 05:45 | Inpatient (IN) | payer MEDICARE ==
[~2022-08-16] VITALS: Ht 157.5 cm; Wt 64.2 kg
[~2022-08-16 05:45] MED LIST changes: +AIRDUO DIGIHAL1 EAC2 INH; +ASPI81CH PO; +ATOR20 PO; +ATROVENT HFA12.9 GM INH; +BUSP5 PO; +DOCU100 PO; +DORZOLAMIDE 2%10 M3 BOTHEYES; +FURO20 PO; +MIRALAX17 GM PO; +Nicoderm Cq1 EAC1 TOP; +POTA8 PO; +TRAVOPROST2.5 ML BOTHEYES
[2022-08-16 06:15] LABS: BASOPHILS ABSOLUTE AUTO 0.04 K/mm3 (0.00-0.23); BASOPHILS PERCENT AUTO 0 % (0-2); EOSINOPHILS ABSOLUTE AUTO 0.04 K/mm3 (0.00-0.68); EOSINOPHILS PERCENT AUTO 0 % (0-6); Hematocrit 38.2 % (33.0-51.0); Hemoglobin 14.2 g/dL (11.5-16.0); IMMATURE GRAN ABSOLUTE AUTO 0.06 K/mm3 (0.00-0.10); IMMATURE GRAN PERCENT AUTO 1 % (0-1); LYMPHOCYTES ABSOLUTE AUTO 2.88 K/mm3 (0.84-5.20); LYMPHOCYTES PERCENT AUTO 27 % (21-46); MONOCYTES ABSOLUTE AUTO 0.72 K/mm3 (0.16-1.47); MONOCYTES PERCENT AUTO 7 % (4-13); Mean Corpuscular HGB 36.2 pg (26.0-34.0); Mean Corpuscular HGB Conc 37.2 g/dL (31.5-36.5); Mean Corpuscular Volume 97 fL (80-100); Mean Platelet Volume 10.1 fL (9.1-12.4); NEUTROPHILS ABSOLUTE AUTO 6.86 K/mm3 (1.96-9.15); NEUTROPHILS PERCENT AUTO 65 % (41-73); Platelet Count 237 K/mm3 (150-400); RDW Coefficient Variation 14.8 % (11.7-14.2); RDW Standard Deviation 46.2 fL (35.1-46.3); Red Blood Cell Count 3.92 M/mm3 (3.80-5.20)
[2022-08-16 06:29] LABS: Calcium, Blood 9.1 mg/dL (8.5-10.1); Creatinine, Blood 0.77 mg/dL (0.40-1.00); Potassium, Blood 4.1 mmol/L (3.5-5.5)
[2022-08-16 06:51] LABS: Base Excess Venous -4.9 mmol/L; PCO2 Venous 50.4 mmHg (38-42)
[2022-08-16 06:53] LABS: pH Blood Venous 7.25 (7.34-7.37)
[2022-08-16 07:10] LABS: Influenza A, PCR NEGATIVE (NEGATIVE); Influenza B, PCR NEGATIVE (NEGATIVE); Resp Syncytial Virus, PCR NEGATIVE (NEGATIVE)
[2022-08-16 07:11] LABS: SARS-Cov-2 (COVID-19) PCR, MMC POSITIVE (NEGATIVE)
--- NOTE | 2022-08-16 11:45 | NUR ---
PT ARRIVED TO ICU ALERT AND ORIENTED X3, ON 2L NC, O2 SATS 98%, LUNG SOUNDS CLEAR, DIMINSHED BASES BILATERALLY. REGULAR DIET, VOIDS CLEAR YELLOW URINE, SKIN INTACT, HAS MASS ON LOWER BACK, HAS BEEN PRESENT SINCE AGE 13 PER PT, PIV X2 SL, BOTH FLUSH WELL. NO FAMILY AT BEDSIDE, PT STATES WILL BE BACK LATER TODAY. RN TO CONTINUE TO MONITOR.
--- NOTE | 2022-08-16 15:46 | NUR ---
ADMISSION ASSESSMENT COMPLETED. PT HAS BEEN OFF BIPAP SINCE ADMIT TO ICU. CONFIRMED PCU ORDERS APPROPRIATE WITH MD. CODE STATUS UPDATED TO DNR PER PT. REPORT CALLED TO CHARLOTTE ALICEA. PT TO BE TRANSFERRED TO PCU 13. CALL PLACED TO PT'S DAUGHTER RAFA PER PT REQEST TO UPDATE HER ABOUT HOSPITALIZATION AND PTS IMPROVING CONDITION, NO ANSWER, LEFT MESSAGE REQUESTING A RETURN CALL. RAFA .
--- NOTE | 2022-08-16 16:42 | NUR ---
ASSUMED CARE UPON TRANSFER TO PCU 1600 TO PCU 13 VIA BED AND PT AMBULATED TO BEDSIDE COMMODE WITHOUT DIFFICULTY. PT URINATED 500ML CLEAR YELLOW. PT HAS 2 IV SALINE LOCKED. PT HAS SLIGHT COMPLANTS OF PAIN TO BACK OF HEAD UPON TRANFER.." PROBABLY DUE TO ALL THE EXCITEMENT". PT WAS 97% ON 2L NASAL CANULA, PUT PATIENT TO ROOM AIR. SHE HAS STRONG COUGH STARTING TO BRING UP CLEAR PHLEM. NO NEW ACUTE NEEDS AT THIS TIME. IS AT BEDSIDE WITH HER.
--- NOTE | 2022-08-16 18:15 | NUR ---
END OF SHIFT NOTE. PATIENT HAS BEEN INDEPENDENT IN ROOM WITHOUT DIFFICUTLY AMBULATING AROUND. SHE IS EATTING DINNER AT THIS TIME. HER OXYGENATION DIPS TO 88 AND UP TO 93% WHEN NOT TALKING OR EATTING AND IS RELAXED IN SITTING POSITION. AT BEDSIDE. NO ACUTE NEEDS AT THIS TIME.
--- NOTE | 2022-08-17 03:45 | NUR ---
PATIENT UPDATE AT APPROXIMATELY 0220 PATIENT'S HR INCREASED TO 140, THIS RN CHECKED ON PATIENT WITH HER STATING "I HAD A DREAM THAT I WAS LOSING ALL MY MONEY PLAYING CARDS AT THE [employer]". THIS RN NOTED THAT SHE WAS MOVING AROUND IN BED, PATIENT DENIED ANY FEELINGS OF DISCOMFORT. THIS RN STEPPED OFF THE FLOOR AND WAS CALLED BACK TO PATIENT'S ROOM BY NARINDER PORTER STATING THAT "RM 13 IS IN SVT". THIS RN ARRIVED TO 13 AROUND 0230. SARAI RN, GILBERT PORTER, AND JAGUAR AT BEDSIDE WITH ISOLATION PPE ON. CRASH CART OUTSIDE OF THE ROOM. THIS RN ENTERED THE ROOM AT 0231 WHEN GILBERT PORTER GAVE 6MG PUSH ADENSOINE. MD VARGAS TO BEDSIDE AFTER ADENOSINE PUSH GIVEN AND GAVE CAROTID MASSAGE AT WHICH TIME THE PATIENT'S HR RANGING FROM 80-90S. ZOLL LEFT AT BEDSIDE WITH PADS LEFT ON PATIENT. BP STABLE; PATIENT ALERT AND ORIENTED FULLY. EKG DONE SHOWING SINUS RHTYHM WITH FREQUENT PVC'S. HR REMAINS IN THE 90S AT TIME OF WRITING THIS NOTE. CONTINUOUS CARDIAC MONITORING. PATIENT DENIES CHEST PAIN/PRESSURE. DENIES SOB; CONTINUES TO BE ON 2L NC WITH O2 SATS >94%. CRASH CART REMAINS OUTSIDE OF ROOM.
--- NOTE | 2022-08-17 04:04 | NUR ---
UPDATE AT 0215 PT CONVERTED INTO SVT, RATE UP TO 202 BPM. THIS RN AT BEDSIDE, CHARLOTTE ANDERSON UPDATING PHYSICIAN AT THIS TIME. PT TOLD TO BEAR DOWN TO ATTEMPT VALSALVA MANEUVER, PT SUSTAINED HR IN 180'S. PT THEN ENCOURAGE TO BLOW INTO SYRINGE IN ANOTHER ATTEMPT AT THE VALSALVA MANEUVER. PHYSICIAN ORDERED 5 MG PUSH OF METOPROLOL IV. GIVEN ON OVERRIDE. PHYSICIAN AT BEDSIDE. 6 MG OF ADENOSINE ORDERED AND PULLED, PACER PADS ON PT, ZOLL AT BEDSIDE AND ON MONITOR. ADENOSINE GIVEN PER MD ORDER AT 0231. DR. JAUREGUI DID CAROTID MASSAGE AT 0233. PT CONVERTED INTO NSR AT 0233. ZOLL REMAINS AT BEDSIDE AND PADS IN PLACE. WILL CONT TO MONITOR
[2022-08-17 04:59] LABS: BASOPHILS PERCENT AUTO 0 % (0-2); EOSINOPHILS PERCENT AUTO 0 % (0-6); Hematocrit 33.4 % (33.0-51.0); Hemoglobin 12.1 g/dL (11.5-16.0); IMMATURE GRAN ABSOLUTE AUTO 0.03 K/mm3 (0.00-0.10); IMMATURE GRAN PERCENT AUTO 1 % (0-1); LYMPHOCYTES ABSOLUTE AUTO 1.06 K/mm3 (0.84-5.20); LYMPHOCYTES PERCENT AUTO 17 % (21-46); MONOCYTES ABSOLUTE AUTO 0.22 K/mm3 (0.16-1.47); MONOCYTES PERCENT AUTO 4 % (4-13); Mean Corpuscular HGB 34.5 pg (26.0-34.0); Mean Corpuscular HGB Conc 36.2 g/dL (31.5-36.5); Mean Corpuscular Volume 95 fL (80-100); Mean Platelet Volume 10.2 fL (9.1-12.4); NEUTROPHILS ABSOLUTE AUTO 4.84 K/mm3 (1.96-9.15); NEUTROPHILS PERCENT AUTO 79 % (41-73); Platelet Count 212 K/mm3 (150-400); RDW Coefficient Variation 13.8 % (11.7-14.2); RDW Standard Deviation 45.1 fL (35.1-46.3); Red Blood Cell Count 3.51 M/mm3 (3.80-5.20); White Blood Cell Count 6.15 K/mm3 (4.00-11.30)
--- NOTE | 2022-08-17 05:00 | NUR ---
SHIFT SUMMARY PATIENT A&O X4 DURING THIS SHIFT. DENIES CHEST PAIN/PRESSURE. HEADACHE RESOLVED; MEDICATED PER EMAR. PATIENT ABLE TO MAKE NEEDS KNOWN AND IS INDEPENDENT TO THE BEDSIDE COMMODE. PATIENT WITH SVT AROUND 0225 THIS AM, HR 180-200'S. 5MG LOPRESSOR PUSH AND 6MG ADENOSINE GIVEN WITH CAROTID MASSAGE BY MD VARGAS; PATIENT HR RETURNED TO 80-90'S AFTER INTERVENTIONS; SEE PREVIOUS NOTES FOR MORE DETAILS. CRASH CART REMAINS OUTSIDE OF PATIENT ROOM. 12 MG OF ADENOSINE DRAWN UP INTO SYRINGE AND AT BEDSIDE NEAR ZOLL. PADS LEFT ON PATIENT. PATIENT CHANGED TO FULL CODE PER REQUEST DURING EVENT. MD AT BEDSIDE WHEN PATIENT EXPRESSED WISHES; PURPLE BRACELETS REMOVED FROM DOORWAY AND BRACELET. PATIENT VERBALIZED UNDERSTANDING WHAT A "FULL CODE" MEANT WITH THE INTERVENTIONS THAT WOULD BE PROVIDED. HR REMAINS IN THE 90'S WITH BP STABLE. PATIENT CONTINUES TO DENY CHEST PAIN/PRESSURE AND SOB. O2 SATS >92% ON 2L NC. AFEBRILE. COVID ISOLATION PRECAUTIONS IN PLACE; PPE OUTSIDE OF DOOR. BED IN LOWEST POSITION AND CALL LIGHT IN PLACE. WILL CONTINUE TO MONITOR UNTIL SHIFT CHANGE AT 0700.
[2022-08-17 05:15] LABS: Albumin, Blood 3.3 g/dL (3.4-5.0); Anion Gap 8 mmol/L (6-16); Blood Urea Nitrogen 28 mg/dL (8-24); Bun/Creatinine Ratio 36.6 (12.0-20.0); CO2, Blood 27 mmol/L (21-32); Calcium, Blood 8.5 mg/dL (8.5-10.1); Chloride, Blood 103 mmol/L (98-108); Creatinine, Blood 0.76 mg/dL (0.40-1.00); Glomerular Filtration Rate 77 (60-); Glucose, Blood 166 mg/dL (70-99); Phosphorus, Blood 3.6 mg/dL (2.5-4.9); Potassium, Blood 4.1 mmol/L (3.5-5.5); Sodium, Blood 138 mmol/L (136-145)
[2022-08-17] MEDS ORDERED: METO25 PO (09:02)
--- NOTE | 2022-08-17 17:03 | NUR ---
Shift Summary Pt has been independent in room and has called appropriately for assistance. Pt was titrated off of supplemental oxygen therapy to room air and tolerated well. Pt has reported no incidences of SOB. Pt has c/o difficulty clearing phlegm, medications are already ordered to treat this. Pt had an episode of increased heart rate (140's) accompanied with elevated blood pressure (SBP 160's) that they stated was related to a phone call that frustrated and upset them. This RN provided deep breathing instruction and dristraction through therapeutic communication to assist them in calming, heart rate and blood pressure fell to normal ranges. Pt has denied c/o pain/discomfort.
--- NOTE | 2022-08-18 05:05 | NUR ---
SHIFT SUMMARY: PT REMAINS ALERT AND ORIENTED X4, BP AND HR STABLE, AFEBRILE, PT REMAINED OFF OF OXYGEN THIS SHIFT CURRENTLY SATING >95%. RESPIRATIONS EVEN AND UNLABORED. PT ABLE TO AMBULATE IND TO BSC, UP MUTIPLE TIMES THROUGHOUT THE NIGHT TO VOID, NO BM THIS SHIFT. PT CURRENTLY SITTING UP IN BED, SLEEPING. CALL LIGHT IN REACH, WILL REPORT TO ONCOMING RN.
--- NOTE | 2022-08-18 16:58 | NUR ---
Shift Summary Pt has been independent in room. Pt has c/o difficulty clearing phlegm. Pt has stated no dyspnea or shortness of breath. Vital signs stable, there was one episode of increased heart rate (130's) during a phone call, this RN reminded the Pt to deep breathe and use distraction to calm down and heart rate fell to 90's. Pt was on 2L via nasal cannula at the start of shift and was titrated to room air, SpO2 has read 92%-98%.
--- NOTE | 2022-08-18 23:54 | NUR ---
RECEIVED REPORT FROM CALLUM CRONIN RN.
--- NOTE | 2022-08-19 00:01 | NUR ---
TRANSFER: PT TRANSFERRED VIA WHEELCHAIR FROM [facility] 13 TO 354 @0002 REPORT GIVEN TO IVETTE PORTER. ALL BELONGINGS WITH PT.
--- NOTE | 2022-08-19 00:04 | NUR ---
PT ARRIVED TO UNIT BY WHEELCHAIR ESCORT AT 0000 WITH BELONGINGS. SELF-TRANSFERRED TO BED.
--- NOTE | 2022-08-19 04:18 | NUR ---
TIEING MACHINE OPERATOR SUMMARY: A&Ox3-4 WITH EPISODIC CONFUSION, BUT EASILY ORIENTED. SHE DID HAVE ONE EPISODE OF CONFUSION WHEN SHE GOT UP TO USE THE BATHROOM AND GOT TURNED AROUND AND ENDED UP IN THE HALLWAY INSTEAD OF HER ROOM; SHE ATTRIBUTED THIS TO HAVING RECENTLY CHANGED ROOMS AND NOT BEING FAMILIAR WITH HER NEW ROOM YET. NO C/O. CONTINUES ISOLATION FOR +COVID BUT IS ASYMPTOMATIC; NO COUGH, DYSPNEA OR SOB REPORTED. INDEPENDENT WITHIN HER ROOM AND SELF-AMBULATES WITHOUT DIFFICULTY. PLEASANT AND COOPERATIVE WITH CARE. TELE READING SINUS @ 78bpm WITH PVCs AND SOME VENTRICULAR TRIGEMINY, ALL OF WHICH HAS BEEN ASYMPTOMATIC. MAINTAINING SPO2 >90% ON RA. WILL REPORT TO ONCOMING RN.
--- NOTE | 2022-08-19 18:13 | NUR ---
SHIFT SUMMARY PT ALERT AND ORIENTED, CALLS APPROPRIATELY. PT COMPLETED 3/4 DOSES OF REMDESIVIR, LAST DOSE TOMORROW. PT REMAINS ON RA, SPO2 > 92%, NO C/O SOB DURING SHIFT. PT INDEPENDENT IN ROOM. PLAN FOR D/C TOMORROW. WILL CONTINUE TO MONITOR. CALL LIGHT WITHIN REACH.
--- NOTE | 2022-08-20 03:23 | NUR ---
NIGTH SHIFT SUMMARY NO ACUTE CHANGES. VITAL SIGNS STABLE. AOX/4. PT IS INDEPENDENT IN THE ROOM; ABLE TO ADVOCATE FOR SELF. PT COUGH HAS BEEN NONPRODUCTIVE UNTIL THIS SHIFT; HAVING SMALL ABMOUTS OF ARREAGA SPUTUM. PT ON TELE; NORMAL SINUS. CALL LIGHT IN REACH.
[2022-08-20 05:29] LABS: Hematocrit 40.4 % (33.0-51.0); Hemoglobin 13.6 g/dL (11.5-16.0); Mean Corpuscular HGB 30.6 pg (26.0-34.0); Mean Corpuscular HGB Conc 33.7 g/dL (31.5-36.5); Mean Corpuscular Volume 91 fL (80-100); Mean Platelet Volume 10.5 fL (9.1-12.4); Platelet Count 236 K/mm3 (150-400); RDW Coefficient Variation 13.4 % (11.7-14.2); RDW Standard Deviation 45.1 fL (35.1-46.3); Red Blood Cell Count 4.45 M/mm3 (3.80-5.20); White Blood Cell Count 9.36 K/mm3 (4.00-11.30)
[2022-08-20 06:01] LABS: Bun/Creatinine Ratio 43.1 (12.0-20.0); Calcium, Blood 9.1 mg/dL (8.5-10.1); Creatinine, Blood 0.91 mg/dL (0.40-1.00); Potassium, Blood 4.1 mmol/L (3.5-5.5)
[2022-08-20] MEDS ORDERED: DECADRON6 M1 PO (12:55)
[2022-08-20] MEDS ORDERED: DORZOPSO BOTHEYES (12:58)
--- NOTE | 2022-08-20 14:00 | NUR ---
PATIENT A&OX4. PLEASANT AND COOPERATIVE WITH CARE. AMBULATES IN ROOM INDEPENDENTLY. USES CALL LIGHT APPROPRIATELY AND ABLE TO ADVOCATE FOR HER NEEDS. PATIENT ON RA WITH SPO2 ABOVE 92%. LUNGS CLEAR T/O. DENIES SOB. PATIENT ON TELE AND HAS BEEN IN NSR IN HIGH 70'S BPM. DENIES CP/CHEST DISCOMFORT. VITAL SIGNS REVIEWED. PATIENT RECIEVED ALL SCHEDULED MEDS THIS SHIFT INCLUDING LAST DOSE OF REMDISIVIR. PATIENT DISCHARGE HOME. DISCHARGE INSTRUCTIONS PACKET GIVEN TO PATIENT AROUND 1325. EDUCATE PATIENT REGARDING ADMITTING DIAGNOSIS, SIGN AND SYMPTOMS, TREATMENTS, AND NEW PRESCRIBED MEDICATIONS. PATIENT STATED UNDERSTANDING AND NO FURTHER QUESTIONS. RX WAS FAXED TO PATIENT PREFERRED PHARMACY ([facility]). IV'S DC'D. ALL PATIENT PERSONAL BELONGINGS WERE SENT HOME WITH THE PATIENT. PATIENT WAS TAKEN VIA WHEELCHAIR BY COUNTERINTELLIGENCE AGENT STAFF TO PATIENT SPOUSE PRIVATE VEHICLE.
== END 2022-08-20 13:33 | disposition home or self-care (01) | DRG 177 ==
LOC: ER 05:45 → PCU 07:27 → ICUW 07:27 → ICUE 11:17 → PCU 16:12 → MEDS 08-19 00:01
PROVIDERS: Student in an Organized Health Care Education/Training Program; ADMIT Internal Medicine
PROC: 8E0ZXY6 Isolation (ICD-10-PCS; principal; 2022-08-16)
PROC: 5A09457 Assistance with Respiratory Ventilation, 24-96 Consecutive Hours, Continuous Positive Airway Pressure (ICD-10-PCS; 2022-08-16)
PROC: 3E0333Z Introduction of Anti-inflammatory into Peripheral Vein, Percutaneous Approach (ICD-10-PCS; 2022-08-16)
PROC: XW0DXM6 Introduction of Baricitinib into Mouth and Pharynx, External Approach, New Technology Group 6 (ICD-10-PCS; 2022-08-16)
PROC: XW033E5 Introduction of Remdesivir Anti-infective into Peripheral Vein, Percutaneous Approach, New Technology Group 5 (ICD-10-PCS; 2022-08-16)
DX: U07.1 COVID-19 (principal); I50.23 Acute on chronic systolic (congestive) heart failure; J96.01 Acute respiratory failure with hypoxia; J96.02 Acute respiratory failure with hypercapnia; J44.1 Chronic obstructive pulmonary disease with (acute) exacerbation; I47.1 Supraventricular tachycardia; Z66 Do not resuscitate; I11.0 Hypertensive heart disease with heart failure; H35.30 Unspecified macular degeneration; I73.00 Raynaud's syndrome without gangrene; H40.9 Unspecified glaucoma; Z87.891 Personal history of nicotine dependence; Z88.0 Allergy status to penicillin; Z88.1 Allergy status to other antibiotic agents; Z88.8 Allergy status to other drugs, medicaments and biological substances; I25.2 Old myocardial infarction; Z79.82 Long term (current) use of aspirin; Z79.899 Other long term (current) drug therapy
CPT/HCPCS: 0241U; 36415; 71045; 80048; 80069; 82803; 83605; 83735; 83880; 84145; 84484; 85025; 85027; 93005; 93010; 94640; 94644; 94660; 94664; 94760; 94762; 96365; 96367; 96372-59; 96375; 99285-25; A9270; C1751; C9399; J0153; J0248; J0456; J1650; J1940; J2930; J3475; J7030; J7050

== ENCOUNTER 2022-09-18 07:41 | Inpatient (IN) | payer MEDICARE ==
[~2022-09-18] VITALS: Ht 157.5 cm; Wt 64.0 kg
[~2022-09-18 07:41] MED LIST changes: +DECADRON6 M1 PO; +DORZOPSO BOTHEYES; +METO25 PO
[2022-09-18 07:57] LABS: Base Excess Venous -9.6 mmol/L; Bicarbonate Venous 14.7 mmol/L (24.0-30.0); pH Blood Venous 7.04 (7.34-7.37)
[2022-09-18] MEDS ORDERED: FLUTICASONE-SA1 EAC9 (08:22)
[2022-09-18 08:34] LABS: Albumin, Blood 3.5 g/dL (3.4-5.0); Albumin/Globulin Ratio 0.8 (0.8-1.8); Bilirubin, Total 0.3 mg/dL (0.1-1.0); Calcium, Blood 8.9 mg/dL (8.5-10.1); Creatinine, Blood 0.89 mg/dL (0.40-1.00); Globulin, Blood 4.6 g/dL (2.2-4.0); Potassium, Blood 3.8 mmol/L (3.5-5.5); Total Protein, Blood 8.1 g/dL (6.4-8.2)
[2022-09-18 08:44] LABS: BASOPHILS ABSOLUTE AUTO 0.08 K/mm3 (0.00-0.23); BASOPHILS PERCENT AUTO 1 % (0-2); EOSINOPHILS PERCENT AUTO 1 % (0-6); Hematocrit 46.2 % (33.0-51.0); Hemoglobin 14.1 g/dL (11.5-16.0); IMMATURE GRAN ABSOLUTE AUTO 0.37 K/mm3 (0.00-0.10); IMMATURE GRAN PERCENT AUTO 3 % (0-1); LYMPHOCYTES ABSOLUTE AUTO 3.97 K/mm3 (0.84-5.20); LYMPHOCYTES PERCENT AUTO 36 % (21-46); MONOCYTES ABSOLUTE AUTO 0.88 K/mm3 (0.16-1.47); MONOCYTES PERCENT AUTO 8 % (4-13); Mean Corpuscular Volume 102 fL (80-100); Mean Platelet Volume 10.6 fL (9.1-12.4); NEUTROPHILS ABSOLUTE AUTO 5.59 K/mm3 (1.96-9.15); NEUTROPHILS PERCENT AUTO 51 % (41-73); NRBC ABSOLUTE 0.02 K/mm3 (0.00-0.02); NRBC Auto 0.2 /100 WBC (0.0-0.2); Platelet Count 460 K/mm3 (150-400); RDW Coefficient Variation 14.5 % (11.7-14.2); RDW Standard Deviation 54.1 fL (35.1-46.3); Red Blood Cell Count 4.55 M/mm3 (3.80-5.20); White Blood Cell Count 10.99 K/mm3 (4.00-11.30)
[2022-09-18 08:46] LABS: Mean Corpuscular HGB Conc 30.5 g/dL (31.5-36.5)
[2022-09-18 08:53] LABS: Influenza B, PCR NEGATIVE (NEGATIVE); Resp Syncytial Virus, PCR NEGATIVE (NEGATIVE); SARS-Cov-2 (COVID-19) PCR, MMC NEGATIVE (NEGATIVE)
[2022-09-18 09:10] LABS: Influenza A, PCR POSITIVE (NEGATIVE)
[2022-09-18 14:32] LABS: Base Excess Venous 0.6 mmol/L; Bicarbonate Venous 23.9 mmol/L (24.0-30.0); PCO2 Venous 44.7 mmHg (38-42); pH Blood Venous 7.37 (7.34-7.37)
[2022-09-18 16:48] LABS: Anti-Xa UFH, PHA Monitoring <0.10 IU/mL; International Normalized Ratio 1.08; Prothrombin Time Results 11.3 Sec (9.7-11.5)
[2022-09-19 06:18] LABS: BASOPHILS ABSOLUTE AUTO 0.01 K/mm3 (0.00-0.23); BASOPHILS PERCENT AUTO 0 % (0-2); EOSINOPHILS PERCENT AUTO 0 % (0-6); Hematocrit 34.4 % (33.0-51.0); Hemoglobin 11.6 g/dL (11.5-16.0); IMMATURE GRAN ABSOLUTE AUTO 0.02 K/mm3 (0.00-0.10); IMMATURE GRAN PERCENT AUTO 0 % (0-1); LYMPHOCYTES ABSOLUTE AUTO 0.63 K/mm3 (0.84-5.20); LYMPHOCYTES PERCENT AUTO 11 % (21-46); MONOCYTES ABSOLUTE AUTO 0.09 K/mm3 (0.16-1.47); MONOCYTES PERCENT AUTO 2 % (4-13); Mean Corpuscular HGB 31.4 pg (26.0-34.0); Mean Corpuscular HGB Conc 33.7 g/dL (31.5-36.5); Mean Platelet Volume 9.4 fL (9.1-12.4); NEUTROPHILS ABSOLUTE AUTO 4.94 K/mm3 (1.96-9.15); NEUTROPHILS PERCENT AUTO 87 % (41-73); Platelet Count 362 K/mm3 (150-400); RDW Coefficient Variation 14.6 % (11.7-14.2); RDW Standard Deviation 50.2 fL (35.1-46.3); Red Blood Cell Count 3.69 M/mm3 (3.80-5.20); White Blood Cell Count 5.69 K/mm3 (4.00-11.30)
[2022-09-19 06:43] LABS: Mean Corpuscular Volume 93 fL (80-100)
[2022-09-19 06:52] LABS: Anion Gap 7 mmol/L (6-16); Blood Urea Nitrogen 20 mg/dL (8-24); Bun/Creatinine Ratio 29.1 (12.0-20.0); CHOL/HDL RATIO 2.2; CO2, Blood 26 mmol/L (21-32); Calcium, Blood 8.5 mg/dL (8.5-10.1); Chloride, Blood 108 mmol/L (98-108); Cholesterol 110 mg/dL (50-200); Creatinine, Blood 0.69 mg/dL (0.40-1.00); Glomerular Filtration Rate 85 (60-); Glucose, Blood 212 mg/dL (70-99); HDL Cholesterol 51 mg/dL (>39); LDL/HDL RATIO 0.9; Low Density Lipoprotein Chol 46 mg/dL (0-110); Potassium, Blood 4.2 mmol/L (3.5-5.5); Sodium, Blood 141 mmol/L (136-145); Triglycerides 64 mg/dL (30-160); Very Low Density Lipoprot Chol 12 mg/dL (6-32)
[2022-09-20 02:10] LABS: Albumin, Blood 3.1 g/dL (3.4-5.0); Anion Gap 8 mmol/L (6-16); Blood Urea Nitrogen 29 mg/dL (8-24); Bun/Creatinine Ratio 34.2 (12.0-20.0); CO2, Blood 24 mmol/L (21-32); Calcium, Blood 8.6 mg/dL (8.5-10.1); Chloride, Blood 104 mmol/L (98-108); Creatinine, Blood 0.85 mg/dL (0.40-1.00); Glomerular Filtration Rate 67 (60-); Glucose, Blood 165 mg/dL (70-99); Phosphorus, Blood 2.8 mg/dL (2.5-4.9); Potassium, Blood 4.5 mmol/L (3.5-5.5); Sodium, Blood 136 mmol/L (136-145)
[2022-09-20 02:37] LABS: BASOPHILS ABSOLUTE AUTO 0.01 K/mm3 (0.00-0.23); BASOPHILS PERCENT AUTO 0 % (0-2); EOSINOPHILS ABSOLUTE AUTO 0.02 K/mm3 (0.00-0.68); EOSINOPHILS PERCENT AUTO 0 % (0-6); Hematocrit 33.1 % (33.0-51.0); IMMATURE GRAN ABSOLUTE AUTO 0.05 K/mm3 (0.00-0.10); IMMATURE GRAN PERCENT AUTO 1 % (0-1); LYMPHOCYTES ABSOLUTE AUTO 0.86 K/mm3 (0.84-5.20); LYMPHOCYTES PERCENT AUTO 8 % (21-46); MONOCYTES ABSOLUTE AUTO 0.42 K/mm3 (0.16-1.47); MONOCYTES PERCENT AUTO 4 % (4-13); Mean Corpuscular HGB 30.7 pg (26.0-34.0); Mean Corpuscular Volume 93 fL (80-100); Mean Platelet Volume 10.7 fL (9.1-12.4); NEUTROPHILS ABSOLUTE AUTO 9.35 K/mm3 (1.96-9.15); NEUTROPHILS PERCENT AUTO 87 % (41-73); Platelet Count 330 K/mm3 (150-400); RDW Coefficient Variation 14.6 % (11.7-14.2); Red Blood Cell Count 3.58 M/mm3 (3.80-5.20); White Blood Cell Count 10.71 K/mm3 (4.00-11.30)
[2022-09-20 02:39] LABS: Mean Corpuscular HGB Conc 33.2 g/dL (31.5-36.5)
[2022-09-21 04:26] LABS: BASOPHILS ABSOLUTE AUTO 0.01 K/mm3 (0.00-0.23); BASOPHILS PERCENT AUTO 0 % (0-2); EOSINOPHILS ABSOLUTE AUTO 0.02 K/mm3 (0.00-0.68); EOSINOPHILS PERCENT AUTO 0 % (0-6); Hematocrit 35.1 % (33.0-51.0); Hemoglobin 11.7 g/dL (11.5-16.0); IMMATURE GRAN ABSOLUTE AUTO 0.16 K/mm3 (0.00-0.10); IMMATURE GRAN PERCENT AUTO 1 % (0-1); LYMPHOCYTES ABSOLUTE AUTO 0.84 K/mm3 (0.84-5.20); LYMPHOCYTES PERCENT AUTO 8 % (21-46); MONOCYTES ABSOLUTE AUTO 0.25 K/mm3 (0.16-1.47); MONOCYTES PERCENT AUTO 2 % (4-13); Mean Corpuscular HGB 31.2 pg (26.0-34.0); Mean Corpuscular HGB Conc 33.3 g/dL (31.5-36.5); Mean Corpuscular Volume 94 fL (80-100); NEUTROPHILS ABSOLUTE AUTO 9.79 K/mm3 (1.96-9.15); NEUTROPHILS PERCENT AUTO 88 % (41-73); Platelet Count 381 K/mm3 (150-400); RDW Coefficient Variation 14.6 % (11.7-14.2); RDW Standard Deviation 50.2 fL (35.1-46.3); Red Blood Cell Count 3.75 M/mm3 (3.80-5.20); White Blood Cell Count 11.07 K/mm3 (4.00-11.30)
[2022-09-21 04:53] LABS: Albumin, Blood 3.2 g/dL (3.4-5.0); Anion Gap 7 mmol/L (6-16); Blood Urea Nitrogen 33 mg/dL (8-24); Bun/Creatinine Ratio 42.3 (12.0-20.0); CO2, Blood 28 mmol/L (21-32); Calcium, Blood 9.1 mg/dL (8.5-10.1); Chloride, Blood 103 mmol/L (98-108); Creatinine, Blood 0.78 mg/dL (0.40-1.00); Glomerular Filtration Rate 74 (60-); Glucose, Blood 179 mg/dL (70-99); Phosphorus, Blood 3.2 mg/dL (2.5-4.9); Potassium, Blood 4.3 mmol/L (3.5-5.5); Sodium, Blood 138 mmol/L (136-145)
[2022-09-22 04:40] LABS: Bun/Creatinine Ratio 37.3 (12.0-20.0); Calcium, Blood 9.2 mg/dL (8.5-10.1); Creatinine, Blood 0.86 mg/dL (0.40-1.00); Magnesium, Blood 2.5 mg/dL (1.6-2.4); Potassium, Blood 4.1 mmol/L (3.5-5.5)
[2022-09-22 05:34] LABS: BASOPHILS ABSOLUTE AUTO 0.05 K/mm3 (0.00-0.23); BASOPHILS PERCENT AUTO 0 % (0-2); EOSINOPHILS PERCENT AUTO 0 % (0-6); Hematocrit 39.9 % (33.0-51.0); Hemoglobin 13.4 g/dL (11.5-16.0); IMMATURE GRAN ABSOLUTE AUTO 0.22 K/mm3 (0.00-0.10); IMMATURE GRAN PERCENT AUTO 2 % (0-1); LYMPHOCYTES ABSOLUTE AUTO 0.88 K/mm3 (0.84-5.20); LYMPHOCYTES PERCENT AUTO 7 % (21-46); MONOCYTES PERCENT AUTO 3 % (4-13); Mean Corpuscular HGB 31.2 pg (26.0-34.0); Mean Corpuscular Volume 93 fL (80-100); Mean Platelet Volume 10.3 fL (9.1-12.4); NEUTROPHILS ABSOLUTE AUTO 10.44 K/mm3 (1.96-9.15); NEUTROPHILS PERCENT AUTO 88 % (41-73); Platelet Count 396 K/mm3 (150-400); RDW Standard Deviation 51.9 fL (35.1-46.3); Red Blood Cell Count 4.29 M/mm3 (3.80-5.20); White Blood Cell Count 11.89 K/mm3 (4.00-11.30)
[2022-09-22 05:42] LABS: Mean Corpuscular HGB Conc 33.6 g/dL (31.5-36.5)
[2022-09-22] MEDS ORDERED: ATOR40TA PO (16:07)
[2022-09-22] MEDS ORDERED: LOSA25 PO (16:08)
[2022-09-22] MEDS ORDERED: METO50ER PO (16:08)
[2022-09-22] MEDS ORDERED: TICA90TA PO (16:09)
[2022-09-22] MEDS ORDERED: VISBIOME 112.51 EACH PO (16:10)
== END 2022-09-22 17:13 | disposition home or self-care (01) | DRG 853 ==
LOC: ER 07:41 → ERHOLD 09:20 → PCU 09:20
PROVIDERS: Emergency Medicine; Student in an Organized Health Care Education/Training Program; ADMIT Family Medicine
PROC: 5A09357 Assistance with Respiratory Ventilation, Less than 24 Consecutive Hours, Continuous Positive Airway Pressure (ICD-10-PCS; 2022-09-18)
PROC: 3E03329 Introduction of Other Anti-infective into Peripheral Vein, Percutaneous Approach (ICD-10-PCS; 2022-09-18)
PROC: 027034Z Dilation of Coronary Artery, One Artery with Drug-eluting Intraluminal Device, Percutaneous Approach (ICD-10-PCS; principal; 2022-09-21)
PROC: 4A023N7 Measurement of Cardiac Sampling and Pressure, Left Heart, Percutaneous Approach (ICD-10-PCS; 2022-09-21)
PROC: B211YZZ Fluoroscopy of Multiple Coronary Arteries using Other Contrast (ICD-10-PCS; 2022-09-21)
PROC: B240ZZ3 Ultrasonography of Single Coronary Artery, Intravascular (ICD-10-PCS; 2022-09-21)
DX: A41.89 Other specified sepsis (principal); I21.4 Non-ST elevation (NSTEMI) myocardial infarction; J10.00 Influenza due to other identified influenza virus with unspecified type of pneumonia; J96.01 Acute respiratory failure with hypoxia; J96.02 Acute respiratory failure with hypercapnia; I50.23 Acute on chronic systolic (congestive) heart failure; J44.1 Chronic obstructive pulmonary disease with (acute) exacerbation; J44.0 Chronic obstructive pulmonary disease with (acute) lower respiratory infection; I47.1 Supraventricular tachycardia; R65.20 Severe sepsis without septic shock; I25.10 Atherosclerotic heart disease of native coronary artery without angina pectoris; I11.0 Hypertensive heart disease with heart failure; H35.30 Unspecified macular degeneration; H40.9 Unspecified glaucoma; I73.00 Raynaud's syndrome without gangrene; E88.09 Other disorders of plasma-protein metabolism, not elsewhere classified; F41.9 Anxiety disorder, unspecified; D64.9 Anemia, unspecified; Z20.822 Contact with and (suspected) exposure to COVID-19; I25.2 Old myocardial infarction; Z87.891 Personal history of nicotine dependence; Z88.0 Allergy status to penicillin; Z88.8 Allergy status to other drugs, medicaments and biological substances; Z88.1 Allergy status to other antibiotic agents; Z79.899 Other long term (current) drug therapy; Z79.82 Long term (current) use of aspirin; Z79.01 Long term (current) use of anticoagulants; Z79.52 Long term (current) use of systemic steroids; Z79.51 Long term (current) use of inhaled steroids
CPT/HCPCS: 0241U; 36415; 71045; 76937; 80048; 80053; 80061; 80069; 82803; 82947; 83036; 83605; 83735; 83880; 84145; 84484; 85025; 85347; 85520; 85610; 85730; 87040; 92978; 93005; 93010; 93454; 94640; 94660; 94664; 94760; 94762; 98960; 99152; 99153; A9270; C1725; C1753; C1769; C1874; C1887; C1894; C9600; J0696; J1644; J1815; J1940; J2250; J2930; J3010; J7030; J7050; J7120; Q9967

== ENCOUNTER → 2023-11-10 | Outpatient (CLI) | payer MEDICARE ==
[~2023-11-10] MED LIST changes: +ATOR40TA PO; +FLUTICASONE-SA1 EAC9; +LOSA25 PO; +Lopressor 25 mg25 MG PO; +METO50ER PO; +TICA90TA PO; +VISBIOME 112.51 EACH PO
[2023-11-10 18:40] LABS: Cholesterol 113 mg/dL (50-200); HDL Cholesterol 38 mg/dL (>39); LDL/HDL RATIO 0.9; Low Density Lipoprotein Chol 34 mg/dL (0-110); Triglycerides 205 mg/dL (30-160); Very Low Density Lipoprot Chol 41 mg/dL (6-32)
[2023-11-10 19:10] LABS: BASOPHILS ABSOLUTE AUTO 0.04 K/mm3 (0.00-0.23); BASOPHILS PERCENT AUTO 1 % (0-2); EOSINOPHILS ABSOLUTE AUTO 0.28 K/mm3 (0.00-0.68); EOSINOPHILS PERCENT AUTO 3 % (0-6); Hematocrit 39.1 % (33.0-51.0); Hemoglobin 12.5 g/dL (11.5-16.0); IMMATURE GRAN ABSOLUTE AUTO 0.02 K/mm3 (0.00-0.10); IMMATURE GRAN PERCENT AUTO 0 % (0-1); LYMPHOCYTES ABSOLUTE AUTO 2.31 K/mm3 (0.84-5.20); LYMPHOCYTES PERCENT AUTO 27 % (21-46); MONOCYTES ABSOLUTE AUTO 0.71 K/mm3 (0.16-1.47); MONOCYTES PERCENT AUTO 8 % (4-13); Mean Corpuscular HGB 30.4 pg (26.0-34.0); Mean Corpuscular Volume 95 fL (80-100); Mean Platelet Volume 11.1 fL (9.1-12.4); NEUTROPHILS ABSOLUTE AUTO 5.12 K/mm3 (1.96-9.15); NEUTROPHILS PERCENT AUTO 60 % (41-73); Platelet Count 292 K/mm3 (150-400); RDW Coefficient Variation 13.4 % (11.7-14.2); RDW Standard Deviation 46.5 fL (35.1-46.3); Red Blood Cell Count 4.11 M/mm3 (3.80-5.20); White Blood Cell Count 8.48 K/mm3 (4.00-11.30)
== END ==
LOC: LAB SHORT 16:38 → LAB 16:38
PROVIDERS: Nurse Practitioner Family
DX: I10 Essential (primary) hypertension (principal)
CPT/HCPCS: 80061; 85025

== ENCOUNTER → 2024-11-12 | Outpatient (CLI) | payer MEDICARE ==
[2024-11-12 18:13] LABS: BASOPHILS ABSOLUTE AUTO 0.04 K/mm3 (0.00-0.23); BASOPHILS PERCENT AUTO 0 % (0-2); EOSINOPHILS ABSOLUTE AUTO 0.22 K/mm3 (0.00-0.68); EOSINOPHILS PERCENT AUTO 2 % (0-6); Hematocrit 43.2 % (33.0-51.0); Hemoglobin 13.8 g/dL (11.5-16.0); IMMATURE GRAN ABSOLUTE AUTO 0.04 K/mm3 (0.00-0.10); IMMATURE GRAN PERCENT AUTO 0 % (0-1); LYMPHOCYTES ABSOLUTE AUTO 1.72 K/mm3 (0.84-5.20); LYMPHOCYTES PERCENT AUTO 18 % (21-46); MONOCYTES ABSOLUTE AUTO 0.69 K/mm3 (0.16-1.47); MONOCYTES PERCENT AUTO 7 % (4-13); Mean Corpuscular Volume 97 fL (80-100); Mean Platelet Volume 11.1 fL (9.1-12.4); NEUTROPHILS ABSOLUTE AUTO 6.71 K/mm3 (1.96-9.15); NEUTROPHILS PERCENT AUTO 71 % (41-73); Platelet Count 258 K/mm3 (150-400); RDW Coefficient Variation 12.4 % (11.7-14.2); RDW Standard Deviation 44.7 fL (35.1-46.3); Red Blood Cell Count 4.45 M/mm3 (3.80-5.20); White Blood Cell Count 9.42 K/mm3 (4.00-11.30)
[2024-11-12 18:14] LABS: Mean Corpuscular HGB Conc 31.9 g/dL (31.5-36.5)
[2024-11-12 18:36] LABS: Albumin, Blood 3.8 g/dL (3.4-5.0); Bilirubin, Total 0.3 mg/dL (0.1-1.0); Calcium, Blood 9.6 mg/dL (8.5-10.1); Creatinine, Blood 0.8 mg/dL (0.40-1.00); Potassium, Blood 4.5 mmol/L (3.5-5.5); Total Protein, Blood 7.8 g/dL (6.4-8.2)
== END | disposition home or self-care (01) ==
LOC: LAB 15:59 → LAB SHORT 15:59
PROVIDERS: Nurse Practitioner Family
DX: I10 Essential (primary) hypertension (principal)
CPT/HCPCS: 80053; 85025